=== PATIENT | female | born 1940 | race Caucasian/White ===

== ENCOUNTER 2020-04-27 13:24 | Inpatient (IN) ==
[2020-04-28] MEDS ORDERED: polyethylene glycoL 3350 17 GM POWD.PACK PO PRN (15:31)
[2020-04-28] MEDS ORDERED: Nitroglycerin 0.4 MG TAB.SUBL SL PRN (15:31)
[2020-04-28] MEDS: Lactulose Oral Soln 20 GM/30 ML UDC PO ONE ×2 (15:55→18:31)
[2020-04-28] MEDS: Budesonide/Formoterol 160/4.5 1 PUFF INH IH SCH (21:36)
[2020-04-28] MEDS: *HR* OxyCODONE/APAP 5/325 TABLET PO PRN (21:51)
[2020-04-29 04:56] LABS: Bilirubin,Urine Negative (Negative); Blood,Urine Negative (Negative); Clarity,Urine Clear (Clear); Color,Urine Yellow (Yellow); Glucose,Urine (UA) Normal (Normal); Ketones,Urine Negative (Negative); Leukocyte Esterase,Urine Negative (Negative); Nitrite,Urine Negative (Negative); PH,Urine 6.5 pH Units (5.0-8.0); Protein,Urine Negative (Neg-Trace); Urobilinogen,Urine Normal (Normal)
[2020-04-29] MEDS: *HR* OxyCODONE/APAP 5/325 TABLET PO PRN ×2 (05:07→21:11)
[2020-04-29 05:56] LABS: Eosinophils # 0.1 K/mcL (0.0-0.6); Eosinophils % 1.5 %; Hemoglobin 9.9 g/dL (11.5-15.4); Immature Granulocytes % 0.6 % (0-4); Lymphocytes # 1.3 K/mcL (0.6-4.6); Lymphocytes % 28.1 %; Mean Corpuscular HGB Conc 30.9 g/dL (31.6-35.5); Mean Corpuscular Volume 90.4 fL (83.0-100.0); Mean Platelet Volume 8.7 fL (9.4-12.4); Monocytes # 0.6 K/mcL (0.0-1.3); Monocytes % 11.9 %; Neutrophils # 2.7 K/mcL (1.6-8.9); Platelet Count 232 K/mcL (140-400); Red Blood Count 3.54 M/mcL (3.82-4.97); Red Cell Distribution Width 14.7 % (11.5-14.5); Segmented Neutrophils % 57.9 %; White Blood Count 4.7 K/mcL (4.3-11.1)
[2020-04-29] MEDS ORDERED: *HR* Enoxaparin 30 MG/0.3 ML SYRINGE SQ SCH (06:00)
[2020-04-29 06:10] LABS: Albumin 3.6 g/dL (3.5-5.7); Albumin/Globulin Ratio 2.4 (1.1-2.2); BUN/Creatinine Ratio 30 (6-26); Bilirubin,Direct 0.3 mg/dL (0.0-0.2); Bilirubin,Total 1.3 mg/dL (0.3-1.0); Blood Urea Nitrogen 20 mg/dL (8-23); Calcium 8.6 mg/dL (8.6-10.3); Carbon Dioxide 31 mEq/L (23-29); Chloride 102 mEq/L (98-107); Globulin 1.5 g/dL (2.4-3.5); Glucose 82 mg/dL (70-105); Osmolality,Calculated 288 (280-300); Potassium 3.6 mEq/L (3.5-5.1); Sodium 138 mEq/L (136-145); Total Protein 5.1 g/dL (6.4-8.9); eGFR For African Americans > 60 (> 60); eGFR For Non-African Americans > 60 (> 60)
[2020-04-29] MEDS: Budesonide/Formoterol 160/4.5 1 PUFF INH IH SCH ×2 (08:10→21:20)
[2020-04-29] MEDS ORDERED: Aspirin Enteric Coated 325 MG Tablet PO SCH (09:00)
[2020-04-29] MEDS ORDERED: Lactulose Oral Soln 20 GM/30 ML UDC PO SCH (09:00)
[2020-04-29] MEDS: Aspirin 325 MG TABLET PO SCH (09:41)
[2020-04-29] MEDS: amLODIPine 5 MG TABLET PO SCH (09:41)
[2020-04-29] MEDS: Ferrous Sulfate Oral Soln 300 MG/5 ML UDC PO SCH (09:41)
[2020-04-29] MEDS ORDERED: Lactulose Oral Soln 20 GM/30 ML UDC PO PRN (13:35)
[2020-04-30] MEDS: *HR* Enoxaparin 40 MG/0.4 ML SYRINGE SQ SCH (05:24)
[2020-04-30 05:26] LABS: Basophils % 0.2 %; Eosinophils # 0.1 K/mcL (0.0-0.6); Eosinophils % 2.1 %; Hematocrit 32.6 % (35.3-44.9); Hemoglobin 10.2 g/dL (11.5-15.4); Immature Granulocytes % 0.9 % (0-4); Lymphocytes # 1.4 K/mcL (0.6-4.6); Lymphocytes % 30.6 %; Mean Corpuscular HGB Conc 31.3 g/dL (31.6-35.5); Mean Corpuscular Hemoglobin 28.3 pg (28.0-33.3); Mean Corpuscular Volume 90.3 fL (83.0-100.0); Mean Platelet Volume 8.5 fL (9.4-12.4); Monocytes # 0.6 K/mcL (0.0-1.3); Monocytes % 12.2 %; Neutrophils # 2.5 K/mcL (1.6-8.9); Platelet Count 250 K/mcL (140-400); Red Blood Count 3.61 M/mcL (3.82-4.97); Red Cell Distribution Width 14.6 % (11.5-14.5); White Blood Count 4.7 K/mcL (4.3-11.1)
[2020-04-30] MEDS: *HR* OxyCODONE/APAP 5/325 TABLET PO PRN ×3 (05:31→18:22)
[2020-04-30 05:43] LABS: Alanine Aminotransferase 17 Units/L (7-52); Albumin 3.4 g/dL (3.5-5.7); Albumin/Globulin Ratio 2.4 (1.1-2.2); Alkaline Phosphatase 52 Units/L (34-104); Aspartate Amino Transferase 11 Units/L (13-39); BUN/Creatinine Ratio 37 (6-26); Bilirubin,Direct 0.2 mg/dL (0.0-0.2); Bilirubin,Indirect 0.9 mg/dL (0.0-1.0); Bilirubin,Total 1.1 mg/dL (0.3-1.0); Blood Urea Nitrogen 26 mg/dL (8-23); Calcium 8.3 mg/dL (8.6-10.3); Carbon Dioxide 30 mEq/L (23-29); Chloride 104 mEq/L (98-107); Globulin 1.4 g/dL (2.4-3.5); Glucose 85 mg/dL (70-105); Osmolality,Calculated 290 (280-300); Sodium 138 mEq/L (136-145); Total Protein 4.8 g/dL (6.4-8.9); eGFR For African Americans > 60 (> 60); eGFR For Non-African Americans > 60 (> 60)
[2020-04-30] MEDS: Aspirin 325 MG TABLET PO SCH (10:21)
[2020-04-30] MEDS: amLODIPine 5 MG TABLET PO SCH (10:21)
[2020-04-30] MEDS: Ferrous Sulfate Oral Soln 300 MG/5 ML UDC PO SCH (10:21)
[2020-04-30] MEDS: Budesonide/Formoterol 160/4.5 1 PUFF INH IH SCH ×2 (12:00→21:01)
[2020-05-01] MEDS: *HR* OxyCODONE/APAP 5/325 TABLET PO PRN ×2 (01:38→08:32)
[2020-05-01] MEDS: *HR* Enoxaparin 40 MG/0.4 ML SYRINGE SQ SCH (04:28)
[2020-05-01] MEDS: Aspirin 325 MG TABLET PO SCH (08:32)
[2020-05-01] MEDS: Ferrous Sulfate Oral Soln 300 MG/5 ML UDC PO SCH (08:32)
[2020-05-01] MEDS: amLODIPine 5 MG TABLET PO SCH (08:32)
[2020-05-01 09:32] VITALS: BP 158/76
[2020-05-01] MEDS: Budesonide/Formoterol 160/4.5 1 PUFF INH IH SCH (09:56)
== END 2020-05-01 10:56 | disposition home health service (06) | DRG 560 ==
LOC: INPGRE 04-28 14:51
PROVIDERS: ADMIT Family Medicine; ATTEND Family Medicine